=== PATIENT | female | born 1980 | race African-American/Black ===

== ENCOUNTER 2018-02-12 05:27 | Emergency (ER) | payer SELFPAY ==
--- NOTE | 2018-02-12 05:32 | ED Physician Documentation ---
Abdominal Pain - HISTORIAN Historian: patient - HPI Stated Complaint: abdominal pain Chief Complaint: Abdominal Pain Onset: days ago (2) Duration: constant Timing: still present Context: denies: out of country travel, bad food, recent trauma Severity: moderate (7 on 1/10 scale ) Quality: pain, dull, cramping, sharp Associated Symptoms: none Exacerbated by: nothing Relieved by: nothing (she has not tried any OTC meds or treatments ) Further Comments: yes (she reports a few days ago she started to have abdominal pain. She states this am "I couldnt take it any more" . She states the pain is on "the right side and down my belly" She has not tried any OTC meds or treatments > Denies any fever. No N/V/D. She has had a bowel movement yesterday that was normal. No trauma) - ROS CONST: no problems GI/: denies: constipation, dark urine, problems urinating CVS/RESP: none EYES/ENT: none MS/SKIN/LYMPH: none NEURO/PSYCH: none - SOCIAL HX Smoking History: non-smoker Alcohol Use: heavy Drug Use: none - FAMILY HX Family History: none - PAST HX Past History: none Ischemic Bowel Risk Factors: none Other History: none Surgeries/Procedures: none Immunizations: UTD - REVIEWED ASSESSMENTS Nursing Assessment Reviewed: Yes Vitals Reviewed: Yes <Willow De La Paz - Last Filed: 02/12/18 05:54> <KARSTEN CHOI - Last Filed: 02/12/18 11:42> - PAST HX Home Medications: Ambulatory Orders Medication Instructions Recorded Ferrous Sulfate [Iron] 325 mg PO TID u2 02/05/17 Allergies/Adverse Reactions: Allergies Allergy/AdvReac Type Severity Reaction Status Date / Time No Known Drug Allergies Allergy Verified 02/12/18 05:43 - VITAL SIGNS Vital Signs: Vital Signs Temp Pulse Resp BP Pulse Ox 97.9 F 77 18 119/75 99 02/12/18 07:40 02/12/18 07:40 02/12/18 07:40 02/12/18 07:40 02/12/18 07:40 Progress <Willow De La Paz - Last Filed: 02/12/18 05:54> <KARSTEN CHOI - Last Filed: 02/12/18 11:42> - Progress Progress: 0700 Assumed care of patient; sleeping on stretcher. Lab and CT results reviewed. Reviewed results with patient. Patient requesting work note for today. Instructed patient to follow clear liquid diet and ADAT, follow up with PCP this week for further evaluation if pain continues. Reviewed S/S to return to ER for; patient verbalized understanding. (KARSTEN CHOI) - Lab Results Lab Results: Lab Results 02/12/18 02/12/18 02/12/18 06:05 06:05 06:05 WBC 10.80 K/ul K/ul (4.00-12.00) RBC 5.19 M/ul M/ul (3.90-5.20) Hgb 13.2 g/dL g/dL (12.0-16.0) Hct 42.7 % % (34.5-46.5) MCV 82.3 fl fl (80.0-100.0) MCH 25.5 pg L pg (28.0-34.0) MCHC 31.0 g/dL g/dL (30.0-36.0) RDW 15.2 % H % (11.3-14.3) Plt Count 251 K/mm3 K/mm3 (130-400) Neut % (Auto) 69.9 % % (39.0-79.0) Lymph % (Auto) 18.8 % % (16.0-50.0) [place] % (Auto) 4.6 % % (0.0-11.0) Eos % (Auto) 4.6 % % (0.0-6.8) Baso % (Auto) 0.7 (0.0-1.5) Neut # (Auto) 7.6 # k/uL # k/uL (1.4-7.7) Lymph # (Auto) 2.0 # k/uL # k/uL (0.6-4.0) [place] # (Auto) 0.5 # k/uL # k/uL (0.0-0.9) Eos # (Auto) 0.5 # k/uL # k/uL (0.0-0.6) Baso # (Auto) 0.1 # k/uL # k/uL (0.0-0.5) Reactive Lymphs % 1.5 % % (0.0-5.0) Reactive Lymphs # 0.2 # k/uL # k/uL (0.0-0.8) Sodium 138 mmol/L mmol/L (136-145) Potassium 3.8 mmol/L mmol/L (3.5-5.1) Chloride 102 mmol/L mmol/L (98-107) Carbon Dioxide 28 mmol/L mmol/L (22-30) BUN 9 mg/dL mg/dL (7-17) Creatinine 0.80 mg/dL mg/dL (0.52-1.04) Estimated Creat Clear 182 Est GFR ( Amer) > 60 (60 - ) Est GFR (Non-Af Amer) > 60 (60 - ) Glucose 105 mg/dL mg/dL (74-106) Calcium 8.8 mg/dL mg/dL (8.4-10.2) Total Bilirubin 0.4 mg/dL mg/dL (0.2-1.3) AST 23 U/L U/L (15-46) ALT 26 U/L U/L (13-69) Alkaline Phosphatase 21 U/L L U/L (38-126) Total Protein 7.8 g/dL g/dL (6.3-8.2) Albumin 4.1 g/dL g/dL (3.5-5.0) Lipase 54 U/L U/L (23-300) Urine Color Urine Appearance Urine pH Ur Specific [place] Urine Protein Urine Ketones Urine Occult Blood Urine Nitrite Urine Bilirubin Urine Urobilinogen Ur Leukocyte Esterase Urine Glucose Ethyl Alcohol < 10.0 mg/dL mg/dL (0.0-10.0) 02/12/18 05:45 WBC RBC Hgb Hct MCV MCH MCHC RDW Plt Count Neut % (Auto) Lymph % (Auto) [place] % (Auto) Eos % (Auto) Baso % (Auto) Neut # (Auto) Lymph # (Auto) [place] # (Auto) Eos # (Auto) Baso # (Auto) Reactive Lymphs % Reactive Lymphs # Sodium Potassium Chloride Carbon Dioxide BUN Creatinine Estimated Creat Clear Est GFR ( Amer) Est GFR (Non-Af Amer) Glucose Calcium Total Bilirubin AST ALT Alkaline Phosphatase Total Protein Albumin Lipase Urine Color Yellow (YELLOW) Urine Appearance Clear (CLEAR) Urine pH 7.5 (5.0 - 8.0) Ur Specific [place] 1.015 (1.010-1.030) Urine Protein Negative mg/dL mg/dL (NEGATIVE) Urine Ketones Negative mg/dL mg/dL (NEGATIVE) Urine Occult Blood Trace-intact H (NEGATIVE) Urine Nitrite Negative (NEGATIVE) Urine Bilirubin Negative (NEGATIVE) Urine Urobilinogen 0.2 Eu Eu (0.2-1.0) Ur Leukocyte Esterase Trace H (NEGATIVE) Urine Glucose Negative mg/dL mg/dL (NEGATIVE) Ethyl Alcohol - Orders Orders: ED Orders Category Date Time Status Place IV Lock 1T Care 02/12/18 05:[address] ABD & PELVIS W/O CON Stat Exams 02/12/18 Completed ALCOHOL MEDICAL USE ONLY Stat Lab 02/12/18 06:05 Completed CBC/PLATELET/DIFF Routine Lab 02/12/18 06:05 Completed CMP Routine Lab 02/12/18 06:05 Completed LIPASE Stat Lab 02/12/18 06:05 Completed UA MACRO DIP ONLY Routine Lab 02/12/18 05:45 Completed 0.9 % Sodium Chloride [Normal Saline] 1,000 ml Med 02/12/18 06:19 Discontinued IV .STK-MED 0.9 % Sodium Chloride [Normal Saline] 1,000 ml Med 02/12/18 06:00 Discontinued IV Q10H Ketorolac Tromethamine [Toradol] Med 02/12/18 06:06 Discontinued 30 mg IVP NOW ONE EKG WITH COMPARISON Stat Ther 02/12/18 Ordered Abdominal Pain Physical Exam - Physical Exam General Appearance: alert, mild distress EENT: eye inspection normal, ENT inspection normal NECK: normal inspection RESPIRATORY: no resp distress, chest non-tender, breath sounds normal CVS: reg rate & rhythm, heart sounds normal, equal pulses, no murmur ABDOMEN: soft, normal bowel sounds, no distension, non-tender BACK: normal inspection, no CVA tenderness SKIN: warm/dry, normal color EXTREMITIES: non-tender, normal range of motion, no evidence of injury, no edema NEURO: oriented X3, CN's nml as tested, motor nml, sensation nml, mood/affect nml, cognition normal <Willow De La Paz - Last Filed: 02/12/18 05:54> - Physical Exam Vital Signs: Vital Signs Temp Pulse Resp BP Pulse Ox 97.9 F 77 18 119/75 99 02/12/18 07:40 02/12/18 07:40 02/12/18 07:40 02/12/18 07:40 02/12/18 07:40 Discharge <Willow De La Paz - Last Filed: 02/12/18 05:54> Decision to Admit: NO Decision Time: 07:15 <KARSTEN CHOI - Last Filed: 02/12/18 11:42> Clincal Impression: Abdominal pain, Nausea alone Additional Instructions: Diet: Clear liquids Sprite/7-up Juices apple, white grape Gatorade/Powerade Jello Popsicles When tolerating clear liquids, advance to bland/brat diet - such as crackers, rice, Bananas, apples/applesauce or toast Return to the emergency department or call your doctor, if you are having severe abdominal pain, fever >101.0, or if there is blood in the vomit or diarrhea, or you cannot keep down liquids or solid food. Condition: Stable Disposition: 01 HOME, SELF-CARE
[2018-02-12] MEDS ORDERED: 0.9 % SODIUM CHLORIDE 1,000 ML IV SCH (06:00)
[2018-02-12] MEDS ORDERED: KETOROLAC TROMETHAMINE 30 MG/1ML VIAL IVP ONE (06:06)
[2018-02-12 06:14] VITALS: BP 119/75
[2018-02-12 06:15] LABS: BASOPHILS % 0.7 (0.0-1.5); EOSINOPHILS % 4.6 % (0.0-6.8); MEAN CORPUSCULAR HEMOGLOBIN 25.5 pg (28.0-34.0); MEAN CORPUSCULAR VOLUME 82.3 fl (80.0-100.0); MONOCYTES % 4.6 % (0.0-11.0); NEUTROPHILS # 7.6 # k/uL (1.4-7.7)
[2018-02-12] MEDS ORDERED: 0.9 % SODIUM CHLORIDE 1,000 ML IV ONE (06:19)
[2018-02-12 06:27] LABS: eGFR (African) > 60; eGFR (Non-African) > 60
[2018-02-12 06:34] LABS: APPEARANCE,URINE CLEAR (CLEAR); COLOR,URINE YELLOW (YELLOW); OCCULT BLOOD,URINE TRACE-INTACT (NEGATIVE); PH URINE 7.5 (5.0 - 8.0); UROBILINOGEN URINE 0.2 Eu (0.2-1.0)
--- NOTE | 2018-02-12 06:39 | Diagnostic Imaging Report ---
[facility] [address] [facility] [address] [place], [place]. [address] Report Submission Date: Feb 12, 2018 6:28:23 AM CDT Patient Study Name: FRIEDA BELLA Date: Feb 12, 2018 6:06:43 AM CDT Modality Type: CT\SR Gender: F Description: CT ABD PELVIS W/O CO : 82 Institution: [facility] Physician: ZEKE MOLINA CT abdomen and pelvis without contrast History: Abdominal pain Technique: Images through the abdomen and pelvis were obtained without contrast. Findings: The lung bases, liver, gallbladder, spleen, pancreas, kidneys and adrenal glands are normal on this noncontrast examination. There is no hydronephrosis, hydroureter or renal calculus. There is no free air or fluid. There is no bowel obstruction. Appendix is normal. Uterus is not seen. Impression: Normal. Electronically signed on Feb 12, 2018 6:28:23 AM CDT by: Zaid CUELLAR
== END 2018-02-12 07:40 | disposition home or self-care (01) ==
LOC: ED 05:27
DX: R10.9 Unspecified abdominal pain (principal); R11.0 Nausea
CPT/HCPCS: 74176; 80053; 80320; 81002; 83690; 85025; J1885; J7030; 96365; 96375; 99283; G0480; S1016